=== PATIENT | female | born 1960 | race Caucasian/White ===

== ENCOUNTER → 2016-05-16 | Outpatient (CLI) | payer MEDICARE ==
[2016-05-16 19:37] LABS: AUTOMATED NEUTROPHIL # 3.5 TH/MM3 (1.8-7.7); BASOPHIL % 0.6 % (0.0-2.0); EOSINOPHIL # 0.3 TH/MM3 (0-0.4); EOSINOPHIL % 5.1 % (0.0-4.0); HEMATOCRIT 29.9 % (35.0-46.0); HEMO FLAGS DIFF FINAL; LYMPH % 18.6 % (9.0-44.0); LYMPHOCYTE # 0.9 TH/MM3 (1.0-4.8); MEAN CORPUSCULAR HEMOGLOBIN 27.8 PG (27.0-34.0); MEAN CORPUSCULAR HGB CONC 33.5 % (32.0-36.0); MONO % 5.2 % (0.0-8.0); NEUT % 70.5 % (16.0-70.0); PLATELET COUNT 208 TH/MM3 (150-450); RED BLOOD COUNT 3.61 MIL/MM3 (4.00-5.30); RED CELL DISTRIBUTION WIDTH 14.3 % (11.6-17.2)
[2016-05-16 20:12] LABS: ANION GAP 9 MEQ/L (5-15); AST (GOT) 30 U/L (15-37); BLOOD UREA NITROGEN 38 MG/DL (7-18); CHLORIDE 101 MEQ/L (98-107); GLOMERULAR FILTRATION RATE 32 ML/MIN (>89); GLUCOSE,FASTING 215 MG/DL (74-99); POTASSIUM 4.6 MEQ/L (3.5-5.1); SODIUM (NA) 138 MEQ/L (136-145)
[2016-05-16 20:21] LABS: ALKALINE PHOSPHATASE 145 U/L (45-117); ALT (GPT) 28 U/L (10-53); TOTAL BILIRUBIN ADULT 0.2 MG/DL (0.2-1.0); TRANSFERRIN IRON PROFILE 277 MG/DL (200-360)
== END ==
LOC: PLAB 14:22
PROVIDERS: ATTEND Family Medicine
DX: I10 Essential (primary) hypertension (principal); N18.9 Chronic kidney disease, unspecified; E03.9 Hypothyroidism, unspecified; K31.84 Gastroparesis; R53.83 Other fatigue; D64.9 Anemia, unspecified
CPT/HCPCS: 36415; 80053; 83540; 83550; 84443; 85025